=== PATIENT | female | born 1965 | race African-American/Black ===

== ENCOUNTER 2024-12-17 20:50 | Emergency (ER) | payer OTHER ==
[~2024-12-17] VITALS: Ht 167.6 cm; Wt 93.1 kg
--- NOTE | 2024-12-17 21:12 | ED.PDOC ---
GI ASSESSMENT HPI Comments 59 year old female came to [facility] due to abdominal pain. Patient denies any abdominal surgeries. States she has been having constant, cramping lower abdominal pains this morning after she ate breakfast. States her last bowel movement was 3 days ago, and earlier today she stared having loose, watery diarrhea. Denies any nausea or vomiting. Denies any urinary symptoms. Chief Complaint: Abdominal Pain Time Seen by MD: 21:11 Primary Care Provider: Jonh Reviewed Notes: Nurses Notes Allergies: Coded Allergies: NO KNOWN ALLERGIES (Unverified , 12/17/24) Information Source: Patient Mode of Arrival: EMS Timing: Hours Duration: Since onset Prehospital treatment: None Quality: Cramping Vomitus: None Stool: Impaction, Loose, Watery Severity: Moderate Recent: Possible spoiled food Recent Hx of: None Pain Location: Suprapubic Modifying Factors: Nothing Associated sign and symptoms: Nausea, Vomiting, Diarrhea, Constipation, Abdominal Pain Past Medical History PAST MEDICAL HISTORY: Denies Surgical History: Denies all surgeries [employer] History: Denies all [employer] PRESENTER Hx Family History Family History: Reviewed,noncontributory to illness Social History Smoker: Non-Smoker Alcohol: Denies ETOH Use Drugs: Denies Drug Use Lives In: Home Constitutional: denies: chills, diaphoresis, fatigue, fever, malaise, sweats, weakness, others EENTM: denies: blurred vision, double vision, ear bleeding, ear discharge, ear drainage, ear pain, ear ringing, eye pain, eye redness, hearing loss, mouth pain, mouth swelling, nasal discharge, nose bleeding, nose congestion, nose pain, photophobia, tearing, throat pain, throat swelling, voice changes, others Respiratory: denies: cough, hemoptysis, orthopnea, SOB at rest, shortness of breath, SOB with excertion, stridor, wheezing, others Cardiovascular: denies: chest pain, dizzy spells, diaphoresis, Dyspnea on exertion, edema, irregular heart beat, left arm pain, lightheadedness, palpitations, PND, syncope, others Gastrointestinal: reports: abdominal pain, constipated, diarrhea, nausea, vomiting; denies: abdomen distended, blood streaked bowels, dysphagia, difficulty swallowing, hematemesis, melena, poor appetite, poor fluid intake, rectal bleeding, rectal pain, others Genitourinary: denies: abnormal vagina bleeding, burning, dyspareunia, dysuria, flank pain, frequency, hematuria, incontinence, pain, , vagina discharge, urgency, others Neurological: denies: dizziness, fainting, headache, left sided numbness, left sided weakness, numbness, paresthesia, pre-existing deficit, right sided numbness, right sided weakness, seizure, speech problems, tingling, tremors, weakness, others Musculoskeletal: denies: back pain, gout, joint pain, joint swelling, muscle pain, muscle stiffness, neck pain, others Integumetry: denies: bruises, change in color, change in hair/nails, dryness, laceration, lesions, lumps, rash, wounds, others Allergic/Immunocompromised: denies: Difficulty Healing, Frequent Infections, Hives, Itching, others Hematologic/Lymphatic: denies: anemia, blood clots, easy bleeding, easy bruising, swollen glands, others Endocrine: denies: excessive hunger, excessive sweating, excessive thirst, excessive urination, flushing, intolerance to cold, intolerance to heat, unexplained weight gain, unexplained weight loss, others Psychiatric: denies: anxiety, bipolar disorder, depression, hopeless, panic disorder, schizophrenia, sleepless, suicidal, others Physical Exam General Appearance: No Apparent Distress, Normal HEENT: Normal ENT Inspection, Pharynx Normal, TMs Normal Neck: Full Range of Motion, Non-Tender, Normal, Normal Inspection Respiratory: Chest Non-Tender, Lungs Clear, No Accessory Muscle Use, No Respiratory Distress, Normal Breath Sounds Cardiovascular: No Edema, No JVD, No Murmur, No Gallop, Normal Peripheral Pulses, Regular Rate/Rhythm Breast Exam: Deferred Gastrointestinal: No Organomegaly, Non Tender, No Pulsatile Mass, Normal Bowel Sounds, Soft Genitalia: Deferred Pelvic: Deferred Rectal: Deferred Extremities: No calf tenderness, Normal capillary refill, Normal inspection, Normal range of motion, Non-tender, No pedal edema Musculoskeletal : Apperance: Normal Neurologic: Alert, hospital intern II-XII nml as Tested, No Motor Deficits, Normal Affect, Normal Mood, No Sensory Deficits Cerebellar Function: Normal Reflexes: Normal Skin: Dry, Normal Color, Warm Lymphatic: No Adenopathy Was a procedure done? Was a procedure done?: No GI differential Dx Differential Diagnosis: Cholecystitis, Constipation, Diverticular disease, Gastritis/PUD, Gastroenteritis, UTI X-Ray, Labs, Meds, VS Vital Signs Date Time Temp Pulse Resp B/P (MAP) Pulse Ox O2 Delivery O2 Flow Rate FiO2 12/17/24 22:15 89 19 100 Room Air* 0 21 12/17/24 22:13 98.4 101 19 143/87 (105) 96 98.4 12/17/24 21:03 101 12/17/24 20:53 98.6 106 18 148/94 (112) 98 98.6 Lab Test 12/17/24 23:22 12/17/24 21:11 12/17/24 21:10 Range/Units Lactic Acid Level 1.1 0.4-2.0 mmol/L Urine Color Colorless Yellow Urine Clarity Clear Clear Urine pH 6.5 5.0-9.0 Urine Specific [place] 1.002 1.001-1.035 Urine Protein Negative Negative Urine Ketones Negative Negative Urine Blood Negative Negative /uL Urine Nitrite Negative Negative Urine Bilirubin Negative Negative Urine Urobilinogen Normal Negative mg/dL Urine Leukocyte Esterase Negative Negative /uL Urine RBC <1 0 - 4 /hpf Urine Microscopic WBC 5 0-5 /HPF Urine Squamous Epithelial Cells Few <5 /hpf Urine Bacteria Few H None Seen /hpf Urine Glucose Normal Normal mg/dL White Blood Count 20.7 H 4.4-10.8 10^3/uL Red Blood Count 5.47 H 4.0-5.20 10^6/uL Hemoglobin 12.6 12.2-16.2 g/dL Hematocrit 40.8 36.0-46.0 % Mean Corpuscular Volume 74.6 L 80.0-100.0 fL Mean Corpuscular Hemoglobin 23.0 L 28.0-32.0 pg Mean Corpuscular Hemoglobin Concent 30.8 L 32.0-36.0 g/dL Red Cell Distribution Width 18.9 H 11.8-14.3 % Platelet Count 368 140-450 10^3/uL Mean Platelet Volume 7.2 6.9-10.8 fL Neutrophils (%) (Auto) 84.9 H 37.0-80.0 % Lymphocytes (%) (Auto) 7.6 L 10.0-50.0 % Monocytes (%) (Auto) 6.5 0.0-12.0 % Eosinophils (%) (Auto) 0.7 0.0-7.0 % Basophils (%) (Auto) 0.3 0.0-2.0 % Neutrophils # (Auto) 17.6 H 1.6-8.6 10 ^3/uL Lymphocytes # (Auto) 1.6 0.4-5.4 10 ^3/uL Monocytes # (Auto) 1.4 H 0-1.3 10 ^3/uL Eosinophils # (Auto) 0.1 0-0.8 10 ^3/uL Basophils # (Auto) 0.1 0-0.2 10 ^3/uL Nucleated Red Blood Cells 0.0 % Sodium Level 142 136-145 mmol/L Potassium Level 4.1 3.5-5.1 mmol/L Chloride Level 108 H 98-107 mmol/L Carbon Dioxide Level 22 20-31 mmol/L Anion Gap 12 5-15 Blood Urea Nitrogen 13 9-23 mg/dL Creatinine 0.99 0.550-1.02 mg/dL Glomerular Filtration Rate Calc 66 >90 mL/min BUN/Creatinine Ratio 13.1 10.0-20.0 Serum Glucose 126 H 74-106 mg/dL Calcium Level 10.3 8.7-10.4 mg/dL Total Bilirubin 0.6 0.2-1.0 mg/dL Aspartate Amino Transferase (AST) 17 13-40 U/L Alanine Aminotransferase (ALT) 24 7-40 U/L Alkaline Phosphatase 93 46-116 U/L Troponin I High Sensitivity 24 </=34 ng/L Total Protein 6.9 5.7-8.2 g/dL Albumin 4.6 3.2-4.8 g/dL Current Medications Medications (Trade) Dose Ordered Sig/Yo Route Start Time Stop Time Status Last Admin Ondansetron HCl (Zofran) 4 mg ONCE ONCE IV 12/17/24 21:15 12/17/24 21:16 DC 12/17/24 22:30 Sodium Chloride 1,000 ml @ 1,000 mls/hr Q1H ONCE IV 12/17/24 21:15 12/17/24 22:14 DC 12/17/24 22:30 Sodium Chloride 2,000 ml @ 1,000 mls/hr Q2H ONCE IV 12/17/24 23:15 12/18/24 01:14 12/17/24 23:56 Piperacillin Sod/ Tazobactam Sod 50 ml @ 50 mls/hr ONCE ONCE IV 12/18/24 00:15 12/18/24 01:14 12/18/24 00:07 Time of 1ST Reevaluation: 21:08 Reevaluation 1ST: Unchanged Patient Education/Counseling: Diagnosis, Treatment Family Education/Counseling: No Family Present Departure 1 Departure Time of Disposition: 00:39 (Patient has signs of colitis. We will empirically cover patient with antibiotics and fluids and admit patient for further workup) Impression: Primary Impression: Non-specific colitis Additional Impression: Abdominal pain Qualified Codes: R10.84 - Generalized abdominal pain Disposition: ADMITTED INPATIENT Admit to: Med Surg Condition: Serious Critical Care Note Critical Care Time?: No Stability Stability form required: No Heart Score Heart Score: Heart Score Response (Comments) Value History N/A 0 EKG N/A 0 Age N/A 0 Risk Factors N/A 0 Troponin N/A 0 Total 0 I personally scribed for JONATHAN OBRREGO MD ([email or web address]) on 12/17/24 at 21:12. Electronically submitted by Marco Zamudio ([email or web address]). I personally scribed for JONATHAN BORREGO MD ([email or web address]) on 12/17/24 at 23:11. Electronically submitted by Marco Zamudio ([email or web address]). JONATHAN BORREGO MD Dec 17, 2024 21:12
[2024-12-17 21:20] LABS: Eosinophils # (auto) 0.1 10 ^3/uL (0-0.8); Eosinophils % (auto) 0.7 % (0.0-7.0); Lymphocytes # (auto) 1.6 10 ^3/uL (0.4-5.4); Mean Corpuscular Volume 74.6 fL (80.0-100.0); Red Cell Distribution Width 18.9 % (11.8-14.3)
[2024-12-17 21:22] LABS: Basophils # (auto) 0.1 10 ^3/uL (0-0.2); Basophils % (auto) 0.3 % (0.0-2.0); Hematocrit 40.8 % (36.0-46.0); Hemoglobin 12.6 g/dL (12.2-16.2); Lymphocytes % (auto) 7.6 % (10.0-50.0); Mean Corpuscular Hgb Conc. 30.8 g/dL (32.0-36.0); Monocytes # (auto) 1.4 10 ^3/uL (0-1.3); Monocytes % (auto) 6.5 % (0.0-12.0); Neutrophils # (auto) 17.6 10 ^3/uL (1.6-8.6); Neutrophils % (auto) 84.9 % (37.0-80.0); Platelet Count (auto) 368 10^3/uL (140-450); Red Blood Cells 5.47 10^6/uL (4.0-5.20); White Blood Cell 20.7 10^3/uL (4.4-10.8)
[2024-12-17 21:37] LABS: Alanine Aminotransferase 24 U/L (7-40); Albumin 4.6 g/dL (3.2-4.8); Alkaline Phosphatase 93 U/L (46-116); Anion Gap 12 (5-15); Aspartate Aminotransferase 17 U/L (13-40); BUN/Creatinine Ratio 13.1 (10.0-20.0); Blood Urea Nitrogen 13 mg/dL (9-23); Calcium 10.3 mg/dL (8.7-10.4); Carbon Dioxide 22 mmol/L (20-31); Potassium 4.1 mmol/L (3.5-5.1); Sodium 142 mmol/L (136-145); Total Protein 6.9 g/dL (5.7-8.2)
[2024-12-17 21:38] LABS: Bilirubin, Total 0.6 mg/dL (0.2-1.0)
[2024-12-17 21:45] LABS: Urine Bacteria FEW /hpf (None Seen); Urine Blood Negative /uL (Negative); Urine Clarity Clear (Clear); Urine Color Colorless (Yellow); Urine Protein, UAD Negative (Negative); Urine Specific Gravity 1.002 (1.001-1.035); Urine Squamous Epithelial Cell FEW /hpf (<5); Urine Urobilinogen Normal (Negative); Urine pH 6.5 (5.0-9.0)
[2024-12-17 21:55] LABS: Chloride 108 mmol/L (98-107); Glucose 126 mg/dL (74-106)
[2024-12-17 22:15] VITALS: PULSE 89; RESP 19; O2SAT 100
[2024-12-17 22:24] LABS: Urine WBC 5 /HPF (0-5)
[2024-12-17] MEDS: ONDANSETRON HCL 4 MG/2 ML VIAL IV ONE (22:30)
[2024-12-17] MEDS: SODIUM CHLORIDE 0.9% 1,000 ML IV ONE (22:30)
[2024-12-17] MEDS ORDERED: VANCOMYCIN 1GM/250ML KIT 200 ML IV ONE ×2 (23:15→23:30)
[2024-12-17] MEDS ORDERED: VANCOMYCIN 1GM/250ML KIT 250 ML IV SCH (23:15)
[2024-12-17] MEDS ORDERED: CEFEPIME 2GM/50ML NS 50 ML IV ONE (23:15)
[2024-12-17] MEDS: SODIUM CHLORIDE 0.9% 2,000 ML IV ONE (23:56)
--- NOTE | 2024-12-17 23:56 | DVH ---
Exam: CT CT AB PEL WO CON-NO ORAL OR IV History: abdominal pain Comparison Study: None available at time of dictation. Technique: Multidetector spiral CT of the abdomen was performed from lung bases to iliac crest. Imagi ng was performed without IV contrast. Axial, coronal and sagittal multiplanar reformats were obtained from the axial data set by the technologist. Radiation Dose : CT Dose: CTDI volume is 16.63 mGy. Dose-length product is 1017.14 mGy*cm Findings: Evaluation of solid organs is limited due to lack of intravenous contrast use. Lung Bases: No acute or significant lung base finding. Moderate bibasilar dependent atelectasis. Norm al heart size. No pleural or pericardial effusion. Liver: The liver is normal in size. Multiple hypoattenuating cystic lesions throughout the liver , t he largest of which measures 1.6 cm within hepatic segment 4A, consistent with hepatic cysts. Gallbladder and Biliary Tree: Unremarkable Spleen: Unremarkable Pancreas: The pancreas is grossly normal in appearance. Adrenal Glands: Unremarkable Kidneys: Kidneys are grossly normal without calculi or hydronephrosis. Visualized Bowel: Small hiatal hernia. The stomach is grossly normal in appearance. Small bowel is no rmal in caliber and distribution. Moderate nonspecific circumferential wall thickening of the colon a t the level of the junction of the descending and sigmoid colon and extending through the proximal 1/ 3 of the sigmoid colon with mild adjacent inflammatory change, suggestive of colitis. Ascites: Absent Lymphadenopathy: No mesenteric, retroperitoneal or periportal lymphadenopathy. Abdominal Wall and Mesentery: Unremarkable. Vasculature: The visualized abdominal aorta is normal in size and caliber. Atherosclerotic vascular c alcifications are present within the aorta and major branching vessels. Evaluation of abdominal and pelvic vessels is limited due to lack of intravenous contrast. Musculoskeletal: No aggressive focal bony lesions, acute fractures or dislocation. IMPRESSION: 1. Findings suggestive of colitis of the proximal sigmoid colon. Radiation optimization: All CT scans at this facility use at least one of these dose optimization jocelyn hniques: automated exposure control mA and/or kV adjustment per patient size (includes targeted exam s where dose is matched to clinical indication) or iterative reconstruction.
[2024-12-18] VITALS: PULSE 86; RESP 21; O2SAT 96
[2024-12-18] MEDS: PIPERACILLIN-TAZOB 2.25GM 50 ML IV ONE ×2 (00:07→00:13)
[2024-12-18] MEDS: VANCOMYCIN 1GM/250ML KIT 200 ML IV ONE (00:56)
[2024-12-18 07:30] VITALS: PULSE 95; RESP 16; O2SAT 97
[2024-12-18] MEDS: IPRATROPIUM BROM 0.5 MG/2.5ML INH SOL NEB ONE (08:10)
[2024-12-18] MEDS: ALBUTEROL SULF 2.5 MG/0.5ML(0.5%) NEB SOLN NEB ONE (08:10)
[2024-12-18 08:37] VITALS: BP 122/67; PULSE 85; RESP 17; TEMP 98.3; O2SAT 98
--- NOTE | 2024-12-19 10:09 | ECG ---
[facility] Test Date: 2024-12-17 Test Time: 21:03:32 Pat Name: SHORTY COOK Department: ED Room: Gender: F Pipe Coremaker: MITA : 1965 Requested By: JONATHAN BORREGO Order Number: [id number] Reading MD: Measurements Intervals [place] Rate: 101 P: 72 DC: 137 QRS: 11 QRSD: 90 T: 16 QT: 349 QTc: 453 Interpretive Statements Sinus tachycardia Please click the below link to view image of tracing.
== END 2024-12-18 08:38 | disposition short-term general hospital (02) ==
LOC: ER 20:50 → EDBD 20:50 → ER 12-18 08:38
DX: K52.9 Noninfective gastroenteritis and colitis, unspecified (principal); Z79.899 Other long term (current) drug therapy
CPT/HCPCS: 36415; 74176; 80053; 81001; 83605; 84484; 85025; 87040; 94640; 96361; 96365; 96367; 96375; 99285; J2405; J2543; J3370; J7030; 93005